=== PATIENT | male | born 1995 | race Caucasian/White ===

== ENCOUNTER 2023-07-08 14:31 | Emergency (ER) | payer BC ==
[~2023-07-08] VITALS: Ht 177.8 cm; Wt 83.9 kg
[2023-07-08 14:46] VITALS: BP_SYST 121; PULSE 88; RESP 18; TEMP 97.8; O2SAT 97
[2023-07-08] MEDS ORDERED: KETOROLAC TROMETHAMINE 30 MG VIAL IM ONE (15:15)
[2023-07-08] MEDS ORDERED: HYDR-3917 PO (15:22)
[2023-07-08] MEDS ORDERED: METH4TAB3 PO (15:22)
[2023-07-08 17:11] VITALS: BP_SYST 121; PULSE 88; RESP 18; TEMP 97.8; O2SAT 97
== END 2023-07-08 15:52 | disposition home or self-care (01) ==
LOC: SED 14:31
DX: M54.30 Sciatica, unspecified side (principal); M54.50 Low back pain, unspecified; Z79.899 Other long term (current) drug therapy
CPT/HCPCS: 99283; 96372; J1885